=== PATIENT | male | born 1985 | race Caucasian/White ===

== ENCOUNTER 2017-12-01 12:32 | Emergency (ER) | payer MEDICAID, OTHER ==
[~2017-12-01] VITALS: Ht 182.9 cm; Wt 68.3 kg
[~2017-12-01 12:32] MED LIST: ALBU18HF2 INH; GUAI120015 PO
[2017-12-01 13:02] VITALS: BP 132/82
== END 2017-12-01 13:55 | disposition home or self-care (01) ==
LOC: ER 12:33
DX: K40.90 Unilateral inguinal hernia, without obstruction or gangrene, not specified as recurrent (principal); F12.90 Cannabis use, unspecified, uncomplicated; F15.90 Other stimulant use, unspecified, uncomplicated; Z56.0 Unemployment, unspecified; Z79.899 Other long term (current) drug therapy
CPT/HCPCS: 99281

== ENCOUNTER 2025-04-05 17:55 | Emergency (ER) | payer MEDICAID ==
[~2025-04-05] VITALS: Ht 180.3 cm; Wt 63.5 kg
[2025-04-05 18:12] VITALS: BP 156/135; RESP 18; O2SAT 98
--- NOTE | 2025-04-05 18:21 | ELECTROCARDIOGRAPH REPORT ---
[facility] Test Date: 2025-04-05 Test Time: 18:18:02 Pat Name: ROSA MEDRANO Department: [facility]- Patient ID: [id number] Room: Gender: M Screenplay Writer: : 1985 Requested By: CRISPIN MATUTE Order Number: [id number] Reading MD: Dr. Edwin Herrera Measurements Intervals [place] Rate: 129 P: 82 MO: 143 QRS: 54 QRSD: 91 T: 68 QT: 293 QTc: 430 Interpretive Statements Sinus tachycardia LAE, consider biatrial enlargement RSR' in V1 or V2, probably normal variant Probable left ventricular hypertrophy ST elev, probable normal early repol pattern Electronically Signed On 04-08-2025 20:44:[address] Edwin Herrera Please click the below link to view image of tracing.
[2025-04-05 18:34] LABS: MEAN PLATELET VOLUME 6.9 FL (7.4-10.4)
[2025-04-05 18:35] LABS: RED CELL DISTRIBUTION WIDTH 13.0 % (11.5-14.5)
[2025-04-05] MEDS: sulfamethoxazole/trimethoprim DS (800/160mg) tablet PO ONE (18:56)
[2025-04-05] MEDS ORDERED: SULF1TAB49 PO (19:02)
--- NOTE | 2025-04-05 19:02 | Physician Documentation ---
History of Present Illness ~ Chief Complaint: Rash Stated Complaint: SKIN INFECTION Time Seen by MD: 18:19 OK to notify your PCP?: Yes Primary Medical Doctor: NO MD Source: patient Mode of Arrival: POV Exam Limitations: no limitations HPI Presents for rash to both lower extremities as well as right forearm. He reports that this has been going on for the past week. He states that it started in his right lower extremity then moved to his left lower extremity in his now migrated to his arm. He admits to recent methamphetamine use. He does not have a history of MRSA. Denies any fevers, chills, nausea, vomiting or diarrhea. Medication Reconciliation Allergies: Coded Allergies: No Known Allergies (Unverified , 04/05/25) Scheduled Albuterol Sulfate (Ventolin Hfa), 2 PUFFS INH Q4HPRN Guaifenesin (Mucinex), 1 TAB PO Q12H Sulfamethoxazole/Trimethoprim (Bactrim Ds Tablet), 1 TAB PO Q12H Past Medical History Past Medical History: No Pertinent History Past Surgical History: noncontributory Alcohol Use: Heavy Drug Use: marijuana, methamphetamine Lives In: Home Occupation: unemployed Review of Systems All Other Systems at this time: Reviewed and Negative Physical Exam Vital Signs: RN Vital Signs have been reviewed: Yes, Temperature: 97.8, Source: Oral, Heart Rate: 130, Respiratory Rate: 18, BP: 156/135, Pulse Oximetry: 98, Weight: 63.500 Oxygen Flow Rate: 0 Pulse Oximetry Reflects: adequate oxygenation Physical Exam General: Alert, no apparent distress. HEENT: PERRL, EOMI, no injection, moist mucous membranes. Neck: Full range of motion. Respiratory: Lungs clear, no respiratory distress. Chest: No accessory muscle use. Cardiovascular: Regular rate and rhythm, no murmurs. Gastrointestinal: Soft, nontender, nondistended. Bowels sounds present. Extremities: Normal range of motion, no deformity. Neurologic: Oriented x4. Psychiatric: Normal mood and affect. Skin: Diffuse erythematous macular, scabbed rash to anterior portion of left and right morgan and right forearm. Progress Results/Orders Reviewed/noted all lab results: Yes Results/Orders Orders - SHIKHA CALIXTO [employer] Cbc/Diff (04/05/25 18:15) Electrocardiogram (04/05/25 18:15) Man Diff (04/05/25 18:26) Completed Orders - SHIKHA CALIXTO [employer] Sulfamethox/Trimetho. Ds Tab ( Ds (04/05/25 18:45) Medications Received in ER Medications (Trade) Dose Ordered Sig/Danita Route PRN Reason Start Time Stop Time Status Last Admin Dose Admin ( DS tab) 1 tab ONCE ONCE PO 04/05/25 18:45 04/05/25 18:48 DC 04/05/25 18:56 1 TAB Vital Signs 04/05/25 18:12 Temp 97.8 Pulse 130 Resp 18 B/P (MAP) 156/135 Pulse Ox 98 O2 Flow Rate 0 Laboratory Tests Test 04/05/25 18:26 White Blood Count 9.5 Red Blood Count 4.93 Hemoglobin 14.2 Hematocrit 42.3 Mean Corpuscular Volume 85.9 Mean Corpuscular Hemoglobin 28.9 Mean Corpuscular Hemoglobin Concent 33.7 Red Cell Distribution Width 13.0 Platelet Count 264 Mean Platelet Volume 6.9 L Neutrophils (%) (Auto) 67.9 Lymphocytes (%) (Auto) 14.7 L Monocytes (%) (Auto) 15.5 H Eosinophils (%) (Auto) 1.3 Basophils (%) (Auto) 0.6 Neutrophils # (Auto) 6.5 Lymphocytes # (Auto) 1.4 Monocytes # (Auto) 1.5 H Eosinophils # (Auto) 0.1 Basophils # (Auto) 0.1 CBC Comment Basophilic Stippling EKG/XRAY/CT/US/VASC/MRI EKG : Additional Comment Electrocardiogram: as interpreted by me; sinus tachycardia, no axis deviation, no acute ischemia, no pre-excitation pattern. Rate: 129 Medical Decision Making Additional information obtaine: old records Findings Presents with lower extremity cellulitis and cellulitis to his right forearm. He reports this going on a week. He has not put any creams on it but he does mentioned that the rash initially was very itchy and so he did itches quite a bit. Now it is more painful than itchy. He does admit to recent meth use and reports that he gets rashes whenever he uses meth at which typically clear up when he is sober. We had a discussion about avoiding methamphetamine use. I did a EKG due to his heart rate being 130. I also did a CBC to rule out sepsis that is difficult to determine if his heart rate is due to his methamphetamine use or if it was due to systemic infection. CBC was within normal limits. EKG was sinus tachycardia. Upon discharge his heart rate has decreased to 115. Denies any chest pain or shortness of breath. He was given return instructions as well as follow up instructions. First dose of Bactrim given here in the department rest sent to the pharmacy. Differential Dx:Considerations: Include: Abscess, Candidiasis, Erysipelas, Gangrene, Herpes zoster, Herpes simplex, Impetigo, Intertrigo, Pityriasis rosea, Scabies, Scarlet fever, Urticaria, Varicella Departure Disposition: HOME / SELF CARE / HOMELESS Impression: Primary Impression: Cellulitis Condition: Stable Discharge Instructions: Cellulitis, Adult Referrals: NO PRIMARY CARE PROVIDER (PCP) Prescriptions Sulfamethoxazole/Trimethoprim (Bactrim Ds Tablet) 800 Mg-160 Mg Tablet 1 TAB PO Q12H for 10 Days, #20 TAB Prov: SHIKHA CALIXTO 04/05/25 Education Educated: Patient Educated regarding: diagnosis, treatment, prognosis, need for follow up Additional Comment Medical Screen Exam This patient recieved a medical screening examination. After reviewing the individual's medical complaints with presenting symptoms and performing an appropriate physical examination, it was determined that no immediate life- threatening emergency medical condition is present. This individual is also not a women having contractions. Signature Scribe Signature: . Attestation: Scribed for Shikha Calixto by Shikha Chan NP . 04/05/25 19:06 Parts of this note were created using [employer] voice recognition software program. While efforts were made to correct any mistakes made by this voice recognition software program, nonsensical phrases may remain in this note. In addition, there may be errors and syntax, grammar, content and spelling. SHIKHA CALIXTO Apr 05, 2025 19:02
[2025-04-05 19:04] VITALS: PULSE 115
[2025-04-05 19:08] VITALS: TEMP 97.8
[2025-04-05 19:22] LABS: EOSINOPHILS % (MANUAL) 1.0 % (0-6); LYMPHOCYTES % (MANUAL) 15.0 % (21-51); MONOCYTES % (MANUAL) 12.0 % (2-12); NEUTROPHILS % (MANUAL) 72.0 % (42-75)
[2025-04-05 19:23] LABS: PLATELET ESTIMATE NORMAL
== END 2025-04-05 19:13 | disposition home or self-care (01) ==
LOC: ER 17:55
DX: L03.113 Cellulitis of right upper limb (principal); F12.90 Cannabis use, unspecified, uncomplicated; F15.90 Other stimulant use, unspecified, uncomplicated; F10.90 Alcohol use, unspecified, uncomplicated; Z88.2 Allergy status to sulfonamides; Z79.899 Other long term (current) drug therapy; Z56.0 Unemployment, unspecified; Y90.9 Presence of alcohol in blood, level not specified
CPT/HCPCS: 85007; 85025; 93005; 99284